=== PATIENT | female | born 1975 | race Caucasian/White ===

== ENCOUNTER 2018-09-27 19:02 | Emergency (ER) | payer OTHER ==
[~2018-09-27] VITALS: Ht 160 cm; Wt 54.9 kg
--- NOTE | 2018-09-27 19:30 | NUR ---
Patient ambulated with stable gait. A/Ox4. Speech is clear, speaks in complete sentences. No neuro deficits. Patient came in for left lateral neck pain for a few weeks, suspects that she sprained it. Respiratory even and unlabored. Pain 5/10.
[2018-09-27] MEDS ORDERED: KETOROLAC TROMETHAMINE 60 MG INJ IM ONE ×2 (19:44→19:45)
--- NOTE | 2018-09-27 19:51 | NUR ---
Patient discharged to home in stable conditon. Written and verbal after care instructions given. Patient verbalizes understanding of instructions. Patient ambulated with stable gait.
== END 2018-09-27 19:51 | disposition home or self-care (01) ==
LOC: ER 19:04
DX: S16.1XXA Strain of muscle, fascia and tendon at neck level, initial encounter (principal); M43.6 Torticollis; F17.200 Nicotine dependence, unspecified, uncomplicated; X58.XXXA Exposure to other specified factors, initial encounter; Y93.89 Activity, other specified; Y92.89 Other specified places as the place of occurrence of the external cause; Y99.8 Other external cause status
CPT/HCPCS: A4663; J1885